=== PATIENT | female | born 1985 | race Caucasian/White ===

== ENCOUNTER 2021-11-03 10:32 | Outpatient (CLI) | payer OTHER ==
[2021-11-03 20:31] LABS: SARS-CoV-2 PCR by NAA Not Detected (NotDetected)
== END 2021-11-03 10:33 | disposition home or self-care (01) ==
LOC: CSHLAB 10:32
PROVIDERS: ATTEND Surgery
DX: Z20.822 Contact with and (suspected) exposure to COVID-19 (principal); K80.80 Other cholelithiasis without obstruction
CPT/HCPCS: U0003; U0005

== ENCOUNTER 2021-11-05 06:49 | Day surgery (SDC) | payer OTHER ==
[2021-11-02 13:22] VITALS: BMI 44.6
[2021-11-05] MEDS ORDERED: Bupivacaine PF 0.5% 30 ML VIAL ONE (07:00)
[2021-11-05] MEDS ORDERED: EPINEPHrine 1 MG/ML AMP ONE (07:00)
[2021-11-05] MEDS ORDERED: Lidocaine 1% MPF 2 ML VIAL ONE (07:43)
[2021-11-05] MEDS ORDERED: Fentanyl 250 MCG/5 ML VIAL ONE (08:29)
[2021-11-05] MEDS ORDERED: PROPOFOL 20 ML ONE (08:29)
[2021-11-05] MEDS ORDERED: Dexamethasone 4 mg/ml Vial ONE (08:29)
[2021-11-05] MEDS ORDERED: Lidocaine 1% PF 5 ML VIAL ONE (08:29)
[2021-11-05] MEDS ORDERED: Rocuronium Bromide 10 MG/ML (10ML VIAL) ONE (08:29)
[2021-11-05] MEDS ORDERED: Ondansetron PF 4 MG/2 ML Vial ONE (08:29)
[2021-11-05] MEDS ORDERED: Midazolam HCl 2 mg/2 ml Vial ONE (08:43)
[2021-11-05] MEDS ORDERED: Glycopyrrolate 0.2 MG/ML 5 ML SYRINGE ONE (09:26)
[2021-11-05] MEDS ORDERED: SUGAMMADEX SODIUM 200 MG/2 ML VIAL ONE (09:32)
[2021-11-05] MEDS ORDERED: HYDROcodone/Acetaminophen 5/325 mg Tablet PO PRN (09:48)
[2021-11-05] MEDS ORDERED: Ketorolac Tromethamine 30 MG/ML VIAL ONE (10:01)
[2021-11-05] MEDS ORDERED: HYDROmorphone 0.5 MG/0.5 ML SYRINGE ONE (10:02)
== END 2021-11-05 11:30 | disposition home or self-care (01) ==
LOC: CSHSDC 06:49
PROVIDERS: ATTEND Surgery
PROC: 0FT44ZZ Resection of Gallbladder, Percutaneous Endoscopic Approach (ICD-10-PCS; principal; 2021-11-05)
DX: K80.10 Calculus of gallbladder with chronic cholecystitis without obstruction (principal); E66.01 Morbid (severe) obesity due to excess calories; Z68.41 Body mass index [BMI] 40.0-44.9, adult; Z79.899 Other long term (current) drug therapy
CPT/HCPCS: 88304; C1776; J0171; J0690; J1100; J1170; J1885; J2250; J2405; J2704; J3010; S0020